=== PATIENT | male | born 1995 | race Caucasian/White ===

== ENCOUNTER 2022-08-06 11:56 | Outpatient (CLI) | payer OTHER, SELFPAY | END 2022-08-06 11:57 | disposition home or self-care (01) | PROVIDERS: Visit Provider Family Medicine | DX: Z00.00 Encounter for general adult medical examination without abnormal findings (principal); I10 Essential (primary) hypertension; G43.109 Migraine with aura, not intractable, without status migrainosus; Z13.6 Encounter for screening for cardiovascular disorders | CPT/HCPCS: 80053; 80061; 83735; 86140 ==